=== PATIENT | male | born 1935 | race Caucasian/White ===

== ENCOUNTER 2020-08-19 06:48 | Day surgery (SDC) | payer MEDICARE, MEDICAID ==
[2020-08-18 13:23] LABS: BASOPHILS # (AUTO) 0.1 X10'3 (0-0.2); BASOPHILS % (AUTO) 1.4 % (0-1); EOSINOPHILS # (AUTO) 0.5 X10'3 (0-0.9); EOSINOPHILS % (AUTO) 6.6 % (0-6); HEMATOCRIT 43.8 % (42.0-52.0); HEMOGLOBIN 14.7 g/dl (14.0-17.9); LYMPHOCYTES % (AUTO) 29.4 % (21-51); MEAN CORPUSCULAR HGB CONC 33.6 g/dL (33.0-36.5); MEAN CORPUSCULAR VOLUME 92.1 FL (78-98); MEAN PLATELET VOLUME 8.4 FL (7.4-10.4); MONOCYTES # (AUTO) 0.4 X10'3 (0-0.9); MONOCYTES % (AUTO) 6.3 % (2-12); NEUTROPHILS # (AUTO) 3.8 X10'3 (1.8-7.7); NEUTROPHILS % (AUTO) 56.3 % (42-75); PLATELET COUNT 173 X10'3 (140-440); RED BLOOD COUNT 4.76 X10'6 (4.70-6.10); RED CELL DISTRIBUTION WIDTH 15.2 % (11.5-14.5); WHITE BLOOD COUNT 6.8 X10'3 (4.5-11.0)
[2020-08-18 13:32] LABS: ALBUMIN 3.7 G/DL (3.4-5.0); ANION GAP 4 (8-16); BLOOD UREA NITROGEN 11 MG/DL (7-18); BUN/CREATININE RATIO 10.5 (5.4-32.0); CALCIUM 8.9 MG/DL (8.5-10.1); CHLORIDE 105 MMOL/L (99-107); CREATININE 1.05 MG/DL (0.60-1.10); GLUCOSE 113 MG/DL (70-104); POTASSIUM 4.1 MMOL/L (3.5-5.1); SODIUM 141 MMOL/L (135-145); TOTAL CARBON DIOXIDE 31.7 MMOL/L (24-32); eGFR 68 ML/MIN
[2020-08-18 13:36] LABS: PARTIAL THROMBOPLASTIN TIME 28 SECONDS (22-32)
[~2020-08-19] VITALS: Ht 175.3 cm; Wt 89.8 kg
[2020-08-19] VITALS (14 sets, daily range): BP systolic 110–171; BP diastolic 72–83
[2020-08-19] MEDS ORDERED: normal saline 1,000 ML IV SCH (07:20)
[2020-08-19] MEDS ORDERED: diphenhydrAMINE 25mg capsule PO PRN (07:20)
[2020-08-19] MEDS ORDERED: LORazepam 0.5 MG tablet PO PRN (07:20)
[2020-08-19] MEDS ORDERED: NITR0.4T48 SL (08:51)
[2020-08-19] MEDS ORDERED: ALLO300T2 PO (08:51)
[2020-08-19] MEDS ORDERED: FLO0.4C PO (08:51)
[2020-08-19] MEDS ORDERED: FURO-150 PO (08:51)
[2020-08-19] MEDS ORDERED: GABA300C PO (08:51)
[2020-08-19] MEDS ORDERED: ATOR-2 PO (08:51)
[2020-08-19] MEDS ORDERED: LISI40TA4 PO (08:51)
[2020-08-19] MEDS ORDERED: ASPI-1071 PO (08:51)
[2020-08-19] MEDS ORDERED: POTA10TA19 PO (08:51)
[2020-08-19] MEDS ORDERED: heparin 1,000unit/ml 10ml vial 10 ML ONE (09:29)
[2020-08-19] MEDS ORDERED: iohexol 350MG/ML 100ml bottle IV ONE ×2 (09:29→10:19)
[2020-08-19] MEDS ORDERED: fentaNYL/PF 50MCG/1 ML 2ML syringe ONE (09:29)
[2020-08-19] MEDS ORDERED: LIDOcaine 1% (10mg/ml)w/preservative injection 20ml MDV ONE (09:29)
[2020-08-19] MEDS ORDERED: iohexol 350 MG/ML 50ML vial IV ONE (09:29)
[2020-08-19] MEDS ORDERED: midazolam 2 mg/2 ml injection ONE (09:29)
[2020-08-19] MEDS ORDERED: nitroGLYCERIN-Tridil 50MG/D5W 250 ML IV ONE (09:30)
[2020-08-19] MEDS ORDERED: pneumococcal 23-VAL P-sac vacc 25 mcg/0.5ml vial IMVAC ONE (13:00)
[2020-08-19] MEDS ORDERED: FLU VACC QS2020-21(6MOS UP)/PF 60 MCG/0.5 ML SYRINGE IMVAC ONE (13:00)
== END 2020-08-19 18:12 | disposition home or self-care (01) ==
LOC: SSTAY O 06:48
PROVIDERS: ATTEND Internal Medicine Cardiovascular Disease
DX: I25.119 Atherosclerotic heart disease of native coronary artery with unspecified angina pectoris (principal); I25.82 Chronic total occlusion of coronary artery; E78.5 Hyperlipidemia, unspecified; I10 Essential (primary) hypertension; N40.0 Benign prostatic hyperplasia without lower urinary tract symptoms; Z79.01 Long term (current) use of anticoagulants; Z79.899 Other long term (current) drug therapy; Z95.1 Presence of aortocoronary bypass graft; Z98.890 Other specified postprocedural states; Z82.49 Family history of ischemic heart disease and other diseases of the circulatory system
CPT/HCPCS: 36415; 76937; 80048; 85025; 85610; 85730; 93005; 93459; 93567; 99152; 99153; C1760; C1769; J1644; J2001; J2250; J3010; J7030; Q0163; Q9967; A4620; A6258; J3490